=== PATIENT | male | born 1995 | race Caucasian/White ===

== ENCOUNTER 2017-12-24 19:58 | Emergency (ER) | payer SELFPAY ==
[~2017-12-24] VITALS: Ht 185.4 cm; Wt 79.5 kg
[~2017-12-24 19:58] MED LIST: ALBUTEROL0.09 MG/A4 IH
[2017-12-24 20:03] VITALS: BP 128/78; PULSE 89; TEMP 98.1
[2017-12-24] MEDS ORDERED: NORCO 325 MG-51 TAB PO (20:23)
[2017-12-24] MEDS ORDERED: AMOXICILLIN 8751 TAB PO (20:23)
== END 2017-12-24 20:39 | disposition home or self-care (01) ==
LOC: COL.ER 19:58
DX: K08.89 Other specified disorders of teeth and supporting structures (principal)